=== PATIENT | female | born 1950 | race Caucasian/White ===

== ENCOUNTER 2018-09-19 15:35 | Outpatient (CLI) | payer MEDICARE, MEDICAID | END 2018-09-19 23:59 | disposition home or self-care (01) | LOC: LAB 15:35 | PROVIDERS: ATTEND Urology | DX: D49.512 Neoplasm of unspecified behavior of left kidney (principal); I10 Essential (primary) hypertension; Z79.899 Other long term (current) drug therapy | CPT/HCPCS: 87077; 87086; 87186 ==

== ENCOUNTER 2018-10-18 13:31 | Inpatient (IN) | payer MEDICARE, MEDICAID ==
[~2018-10-18] VITALS: Ht 162.6 cm; Wt 79.6 kg
[~2018-10-18 13:31] MED LIST: ATOR20TA PO; ATOR20TA37 PO; CARB1DRO18 OP; CEFD300C37 PO; CEPH-368 PO; CLON0.1T22 PO; DIPH25CA61 PO; DOCU-131 PO; FLUT16SP24 NS; FLUT9.9S NAS; HYDR-3240 PO; HYDR-826 PO; LEVO137T3 PO; LISI5TAB7 PO; ONDA4TAB7 PO; SULI200T2 PO; TRAM50TA2 PO; VIT1CAPS42 PO
[2018-10-18] MEDS ORDERED: SODIUM CHLORIDE 0.9% 1,000 ML IV ONE (13:58)
[2018-10-18] MEDS ORDERED: ONDANSETRON 2MG/ML, 2ML IVPush ONE (14:00)
[2018-10-18] MEDS ORDERED: SODIUM CHLORIDE FLUSH 10ML SYR IVF ONE (14:00)
[2018-10-18] MEDS ORDERED: ONDANSETRON 2MG/ML, 2ML ONE (14:14)
[2018-10-18 14:21] LABS: BASOPHILS # (AUTO) 0.04 x10^3/uL (0-0.1); BASOPHILS % (AUTO) 1 % (0-1); EOSINOPHILS # (AUTO) 0.77 x10^3/uL (0-0.4); EOSINOPHILS % (AUTO) 10 % (1-7); LYMPHOCYTES # (AUTO) 1.81 x10^3/uL (1-3.4); LYMPHOCYTES % (AUTO) 23 % (22-44); MD NO; MEAN CORPUSCULAR HEMOGLOBIN 28.8 pg (27.0-34.8); MEAN CORPUSCULAR HGB CONC 33.2 g/dL (32.4-35.8); MEAN CORPUSCULAR VOLUME 86.8 fL (80-100); MEAN PLATELET VOLUME 6.7 fL (7.4-10.4); MONOCYTES # (AUTO) 0.47 x10^3/uL (0.2-0.8); MONOCYTES % (AUTO) 6 % (2-9); NEUTROPHILS # (AUTO) 4.97 x10^3/uL (1.8-6.8); NEUTROPHILS % (AUTO) 62 % (42-75); PLATELET COUNT 357 x10^3/uL (130-400); RED BLOOD COUNT 4.14 x10^6/uL (3.82-5.3); RED CELL DISTRIBUTION WIDTH 13.4 % (9.6-15.2)
[2018-10-18 14:28] LABS: ALANINE AMINOTRANSFERASE 16 U/L (12-78); ALBUMIN 3.8 g/dL (3.4-5.0); ANION GAP 7 mmol/L (5-15); CALCIUM 9.9 mg/dL (8.5-10.1); CHLORIDE 110 mmol/L (98-107); CREATININE 2.02 mg/dL (0.55-1.02)
[2018-10-18 14:30] LABS: ALKALINE PHOSPHATASE 78 U/L (45-117); BILIRUBIN,TOTAL 0.6 mg/dL (0.2-1.0); TOTAL PROTEIN 7.9 g/dL (6.4-8.2)
--- NOTE | 2018-10-18 14:53 | NUR ---
PT TO RAD [facility]
[2018-10-18 15:59] LABS: MICROSCOPIC AUTO
[2018-10-18 16:06] LABS: CULTURE INDICATED? YES
[2018-10-18] MEDS ORDERED: ACETAMINOPHEN 325 MG TABLET PO PRN (17:00)
[2018-10-18] MEDS ORDERED: ONDANSETRON 2MG/ML, 2ML IVPush PRN (17:00)
[2018-10-18] MEDS ORDERED: hydrALAzine 20 MG/ML, 1ML IVPush PRN (17:00)
[2018-10-18] MEDS: METOCLOPRAMIDE 5 MG/ML, 2ML IVPush SCH (17:29)
[2018-10-18] MEDS: POLYETHYLENE GLYCOL 17 GM PACKET PO SCH (18:02)
[2018-10-18] MEDS: SODIUM CHLORIDE 0.9% 1,000 ML IV SCH (18:02)
[2018-10-18] MEDS: HEPARIN 5,000 UNITS/ML, 1ML SQ SCH (18:09)
[2018-10-18] MEDS: CEFTRIAXONE PMX 1GM/50ML 50 ML IV SCH (18:09)
[2018-10-18 18:22] VITALS: BP 168/108
[2018-10-18] MEDS: DOCUSATE 100 MG CAPSULE PO SCH (21:00)
[2018-10-18] MEDS: ARTIFICIAL TEARS 15 DROP/ML BOTTLE OP SCH (21:00)
[2018-10-18] MEDS: AMLODIPINE 5 MG TABLET PO SCH (21:00)
[2018-10-19] MEDS: HEPARIN 5,000 UNITS/ML, 1ML SQ SCH ×3 (00:58→17:11)
[2018-10-19] MEDS: SODIUM CHLORIDE 0.9% 1,000 ML IV SCH ×3 (00:58→20:43)
[2018-10-19 01:01] VITALS: BP 120/77
[2018-10-19 04:54] LABS: BASOPHILS # (AUTO) 0.04 x10^3/uL (0-0.1); BASOPHILS % (AUTO) 1 % (0-1); EOSINOPHILS # (AUTO) 0.67 x10^3/uL (0-0.4); EOSINOPHILS % (AUTO) 10 % (1-7); LYMPHOCYTES # (AUTO) 2.09 x10^3/uL (1-3.4); LYMPHOCYTES % (AUTO) 33 % (22-44); MD NO; MEAN CORPUSCULAR HGB CONC 33.5 g/dL (32.4-35.8); MEAN CORPUSCULAR VOLUME 86.7 fL (80-100); MEAN PLATELET VOLUME 7.1 fL (7.4-10.4); MONOCYTES # (AUTO) 0.54 x10^3/uL (0.2-0.8); MONOCYTES % (AUTO) 8 % (2-9); NEUTROPHILS # (AUTO) 3.08 x10^3/uL (1.8-6.8); NEUTROPHILS % (AUTO) 48 % (42-75); PLATELET COUNT 269 x10^3/uL (130-400); RED BLOOD COUNT 3.43 x10^6/uL (3.82-5.3); RED CELL DISTRIBUTION WIDTH 13.5 % (9.6-15.2)
[2018-10-19 05:08] LABS: ANION GAP 6 mmol/L (5-15); CALCIUM 8.7 mg/dL (8.5-10.1); CHLORIDE 112 mmol/L (98-107); CREATININE 1.93 mg/dL (0.55-1.02)
[2018-10-19 06:36] VITALS: BP 126/78
[2018-10-19] MEDS: LEVOTHYROXINE 137 MCG TABLET PO SCH (08:15)
[2018-10-19] MEDS: MULTIVITS,STRESS FORMULA 1 TABLET PO SCH (08:15)
[2018-10-19] MEDS: METOCLOPRAMIDE 5 MG/ML, 2ML IVPush SCH ×3 (08:16→17:11)
[2018-10-19] MEDS: ARTIFICIAL TEARS 15 DROP/ML BOTTLE OP SCH ×5 (08:16→20:47)
[2018-10-19] MEDS: FLUTICASONE NASAL SPRAY 16GM NAS SCH (08:17)
[2018-10-19] MEDS: DOCUSATE 100 MG CAPSULE PO SCH ×2 (08:17→20:43)
[2018-10-19] MEDS: POLYETHYLENE GLYCOL 17 GM PACKET PO SCH (08:17)
[2018-10-19] MEDS ORDERED: MULTIVIT STRESS FORMULA PO SCH (09:00)
[2018-10-19] MEDS ORDERED: TEMPLATE NON-FORMULARY MED. (Fluticasone Propionate (Flonase Allergy Relief) 1 SPRAY) NAS SCH (09:00)
[2018-10-19] MEDS ORDERED: ZINC PO SCH (09:00)
[2018-10-19 13:28] VITALS: BP 101/68
[2018-10-19] MEDS: CEFTRIAXONE PMX 1GM/50ML 50 ML IV SCH (17:11)
[2018-10-19 18:47] VITALS: BP 136/79
[2018-10-19] MEDS: AMLODIPINE 5 MG TABLET PO SCH (20:43)
[2018-10-20 00:38] VITALS: BP 113/71
[2018-10-20] MEDS: HEPARIN 5,000 UNITS/ML, 1ML SQ SCH ×2 (00:38→08:11)
[2018-10-20 03:57] VITALS: BP 133/78
[2018-10-20] MEDS: SODIUM CHLORIDE 0.9% 1,000 ML IV SCH (05:57)
[2018-10-20 07:22] LABS: BASOPHILS # (AUTO) 0.05 x10^3/uL (0-0.1); BASOPHILS % (AUTO) 1 % (0-1); EOSINOPHILS # (AUTO) 0.55 x10^3/uL (0-0.4); EOSINOPHILS % (AUTO) 11 % (1-7); LYMPHOCYTES # (AUTO) 1.69 x10^3/uL (1-3.4); LYMPHOCYTES % (AUTO) 34 % (22-44); MD NO; MEAN CORPUSCULAR HEMOGLOBIN 28.8 pg (27.0-34.8); MEAN CORPUSCULAR HGB CONC 33.1 g/dL (32.4-35.8); MEAN CORPUSCULAR VOLUME 86.8 fL (80-100); MEAN PLATELET VOLUME 6.4 fL (7.4-10.4); MONOCYTES # (AUTO) 0.39 x10^3/uL (0.2-0.8); MONOCYTES % (AUTO) 8 % (2-9); NEUTROPHILS # (AUTO) 2.37 x10^3/uL (1.8-6.8); NEUTROPHILS % (AUTO) 47 % (42-75); PLATELET COUNT 226 x10^3/uL (130-400); RED BLOOD COUNT 3.17 x10^6/uL (3.82-5.3); RED CELL DISTRIBUTION WIDTH 13.3 % (9.6-15.2)
[2018-10-20 07:31] LABS: ANION GAP 6 mmol/L (5-15); CALCIUM 8.5 mg/dL (8.5-10.1); CHLORIDE 112 mmol/L (98-107); CREATININE 1.87 mg/dL (0.55-1.02)
[2018-10-20 08:08] VITALS: BP 131/77
[2018-10-20] MEDS: FLUTICASONE NASAL SPRAY 16GM NAS SCH (08:11)
[2018-10-20] MEDS: METOCLOPRAMIDE 5 MG/ML, 2ML IVPush SCH (08:11)
[2018-10-20] MEDS: DOCUSATE 100 MG CAPSULE PO SCH (08:12)
[2018-10-20] MEDS: MULTIVITS,STRESS FORMULA 1 TABLET PO SCH (08:12)
[2018-10-20] MEDS: POLYETHYLENE GLYCOL 17 GM PACKET PO SCH (08:13)
[2018-10-20] MEDS: LEVOTHYROXINE 137 MCG TABLET PO SCH (08:13)
[2018-10-20] MEDS ORDERED: CEFD300C37 PO (11:11)
== END 2018-10-20 13:03 | disposition home or self-care (01) | DRG 683 ==
LOC: ED 14:03 → EDIP 16:15 → 4NW 17:29
PROVIDERS: ADMIT Family Medicine; ATTEND Family Medicine
PROC: 0T9B70Z Drainage of Bladder with Drainage Device, Via Natural or Artificial Opening (ICD-10-PCS; principal; 2018-10-18)
DX: N17.9 Acute kidney failure, unspecified (principal); N39.0 Urinary tract infection, site not specified; B96.20 Unspecified Escherichia coli [E. coli] as the cause of diseases classified elsewhere; E06.3 Autoimmune thyroiditis; E78.5 Hyperlipidemia, unspecified; I12.9 Hypertensive chronic kidney disease with stage 1 through stage 4 chronic kidney disease, or unspecified chronic kidney disease; J30.9 Allergic rhinitis, unspecified; K59.00 Constipation, unspecified; N18.9 Chronic kidney disease, unspecified; Z66 Do not resuscitate; Z82.49 Family history of ischemic heart disease and other diseases of the circulatory system; Z87.410 Personal history of cervical dysplasia; Z88.8 Allergy status to other drugs, medicaments and biological substances; Z85.528 Personal history of other malignant neoplasm of kidney; Z16.23 Resistance to quinolones and fluoroquinolones; Z88.5 Allergy status to narcotic agent; Z90.5 Acquired absence of kidney
CPT/HCPCS: 36415; 71045; 74176; 80048; 80053; 81001; 83690; 85025; 87077; 87086; 87186; 99285; G0378; J0696; J1644; J2405; J2765; J7030

== ENCOUNTER 2019-01-14 10:06 | Outpatient (CLI) | payer MEDICARE, MEDICAID ==
[2019-01-14 10:36] LABS: ALBUMIN 3.4 g/dL (3.4-5.0); ANION GAP 6 mmol/L (5-15); CALCIUM 9.3 mg/dL (8.5-10.1); CHLORIDE 108 mmol/L (98-107); CREATININE 1.54 mg/dL (0.55-1.02)
[2019-01-14 10:41] LABS: ALANINE AMINOTRANSFERASE 20 U/L (12-78); ALKALINE PHOSPHATASE 90 U/L (45-117); BILIRUBIN,TOTAL 0.5 mg/dL (0.2-1.0); TOTAL PROTEIN 7.7 g/dL (6.4-8.2)
== END 2019-01-14 23:59 | disposition home or self-care (01) ==
LOC: LAB 10:06
PROVIDERS: ATTEND Physician Assistant
DX: C64.9 Malignant neoplasm of unspecified kidney, except renal pelvis (principal); F12.90 Cannabis use, unspecified, uncomplicated
CPT/HCPCS: 36415; 80053

== ENCOUNTER 2019-01-14 13:03 | Outpatient (CLI) | payer MEDICARE, MEDICAID | END 2019-01-14 23:59 | disposition home or self-care (01) | LOC: RAD 13:03 | PROVIDERS: ATTEND Physician Assistant | DX: Z02.9 Encounter for administrative examinations, unspecified (principal) ==

== ENCOUNTER → 2019-01-22 | Outpatient (CLI) | payer MEDICARE, MEDICAID | END | disposition home or self-care (01) | LOC: RAD 12:47 | PROVIDERS: ATTEND Physician Assistant | DX: N28.1 Cyst of kidney, acquired (principal); K76.0 Fatty (change of) liver, not elsewhere classified; R16.2 Hepatomegaly with splenomegaly, not elsewhere classified; K80.80 Other cholelithiasis without obstruction; N28.9 Disorder of kidney and ureter, unspecified; F12.10 Cannabis abuse, uncomplicated | CPT/HCPCS: 74183 ==

== ENCOUNTER 2019-07-25 13:25 | Outpatient (CLI) | payer MEDICARE, MEDICAID | END 2019-07-25 23:59 | disposition home or self-care (01) | LOC: CFH 13:25 | PROVIDERS: ATTEND Physician Assistant | DX: C64.9 Malignant neoplasm of unspecified kidney, except renal pelvis (principal); K80.20 Calculus of gallbladder without cholecystitis without obstruction; M51.36 Other intervertebral disc degeneration, lumbar region; R59.0 Localized enlarged lymph nodes; Z90.5 Acquired absence of kidney | CPT/HCPCS: 74176; 82565 ==

== ENCOUNTER → 2019-09-19 | Outpatient (CLI) | payer MEDICARE, MEDICAID ==
[2019-09-19 15:46] LABS: ALBUMIN 3.7 g/dL (3.4-5.0); ANION GAP 6 mmol/L (5-15); CALCIUM 9.6 mg/dL (8.5-10.1); CHLORIDE 112 mmol/L (98-107)
[2019-09-19 15:50] LABS: ALANINE AMINOTRANSFERASE 18 U/L (12-78); ALKALINE PHOSPHATASE 117 U/L (45-117); BILIRUBIN,TOTAL 0.4 mg/dL (0.2-1.0); CREATININE 1.86 mg/dL (0.55-1.02); TOTAL PROTEIN 8.3 g/dL (6.4-8.2)
== END | disposition home or self-care (01) ==
LOC: CFH 12:51
PROVIDERS: ATTEND Physician Assistant
DX: C64.9 Malignant neoplasm of unspecified kidney, except renal pelvis (principal)
CPT/HCPCS: 36415; 80053

== ENCOUNTER → 2019-09-22 | Outpatient (CLI) | payer MEDICARE, MEDICAID | END | disposition home or self-care (01) | LOC: CFH 16:07 | PROVIDERS: ATTEND Physician Assistant | DX: C64.9 Malignant neoplasm of unspecified kidney, except renal pelvis (principal); M51.34 Other intervertebral disc degeneration, thoracic region; N32.89 Other specified disorders of bladder; N28.1 Cyst of kidney, acquired | CPT/HCPCS: 71046; 76770 ==

== ENCOUNTER → 2020-03-19 | Outpatient (CLI) | payer MEDICARE, MEDICAID ==
[~2020-03-19] MED LIST changes: +HYDR-1067 PO; -HYDR-3240 PO
== END | disposition home or self-care (01) ==
LOC: RAD 13:11
PROVIDERS: ATTEND Physician Assistant
DX: C64.9 Malignant neoplasm of unspecified kidney, except renal pelvis (principal); N28.1 Cyst of kidney, acquired; Z90.5 Acquired absence of kidney; K80.20 Calculus of gallbladder without cholecystitis without obstruction
CPT/HCPCS: 74181